=== PATIENT | male | born 1945 | race Caucasian/White ===

== ENCOUNTER 2017-04-26 09:21 | Emergency (ER) ==
[2017-04-26 09:30] VITALS: TEMP 97.4; BMI 28.7
[2017-04-26] MEDS ORDERED: SODIUM CHLORIDE 1,000 ML IV STA (09:49)
--- NOTE | 2017-04-26 09:49 | ED.PDOC ---
General ED Provider: Dr. ELISSA MURPHY Chief Complaint: Extremity Pain/Injury Stated Complaint: Patient complains of pain in right thigh for one week, unable to bear weight, denies injury, no swelling. Time Seen by Physician: 09:45 Mode of Arrival: Wheelchair Information Source: Patient Primary Care Provider: ELISSA IGLESIAS Nursing and Triage Documentation Reviewed and Agree: Yes Reviewed sepsis parameters & appropriate labs ordered?: Yes System Inflammatory Response Syndrome: Not Applicable Sepsis Protocol: For patient's 13 years and over: Temp is 96.8 and below OR 101 and greater Pulse >90 BPM Resp >20/minute Acutely Altered Mental Status Are patient's symptoms suggestive of a new infection, such as: -Pneumonia -Skin, Soft Tissue -Endocarditis -UTI -Bone, Joint Infection -Implantable Device -Acute Abdominal Infection -Wound Infection -Meningitis -Blood Stream Catheter Infection -Unknown System Inflammatory Response Syndrome: Not Applicable Musculoskeletal Complaint Exam - Lower Extremity Complaint/Exam Location of Pain: Reports: Thigh Mechanism of Injury: Reports: No known trauma Symptoms Are: Still present (intermittent) Onset of Pain: Reports: Immediate Initial Severity: Moderate Current Severity: Mild Location: Reports: Discrete (proximal) Character: Reports: Sharp, Aching Alleviating: Reports: Rest Aggravating: Reports: Weight bearing Able to Bear Weight: Yes Associated Signs and Symptoms: Denies: Swelling, Redness, Bruising, Fever, Weakness, Numbness, Tingling DVT Risk Factors: Reports: Malignancy Septic Arthritis Risk Factors: Reports: None Related Surgical History: Reports: None Lower Extremity Findings: Present: Tenderness. Absent: Swelling, Ecchymosis, Abnormal contour, Rotation, Ligamentous instability, Erythema, Warmth, Blisters , Other joint pain, Foreign body, Limited range of motion NV Bundle Intact Distal to Injury: Yes Compartment Syndrome Risk Factors: Present: Pain. Absent: Paralysis, Pallor, Pulselessness, Paresthesias Nestor's Sign Present: No Differential Diagnoses: Contusion, DVT, Strain Review of Systems - Review Of Systems Constitutional: Reports: No symptoms Eyes: Reports: No symptoms Ears, Nose, Mouth, Throat: Reports: Throat pain (hx tracheotomy) Respiratory: Reports: No symptoms Cardiac: Reports: No symptoms GI: Reports: No symptoms : Reports: No symptoms Musculoskeletal: Reports: Muscle pain Skin: Reports: No symptoms Neurological: Reports: No symptoms. Denies: Unable to move lower ext Endocrine: Reports: No symptoms Hematologic/Lymphatic: Reports: No symptoms All Other Systems: Reviewed and Negative Past Medical History - Past Medical History Endocrine: Reports: None Cardiovascular: Reports: Hypertension Respiratory: Reports: None Hematological: Reports: None Gastrointestinal: Reports: None Genitourinary: Reports: None Neuro/Psych: Reports: None Musculoskeletal: Reports: None Cancer: Reports: Lung, Other (Throat and Lung ) - Surgical History General Surgical History: Reports: Other (Throat/tracheotomy) - Family History Family History: Reports: None - Social History Smoking Status: Never smoker Hx Substance Use: No Alcohol Screening: Occasionally - Immunizations Tetanus Shot up to Date: No Physical Exam - Physical Exam Appearance: Ill-appearing Ill-appearing: Mild Pain Distress: None Eyes: JAMES, EOMI, Conjunctiva clear, Conjunctiva inflammed, Conjunctiva pale ENT: Ears normal, Oropharynx normal (Tracheotomy) Respiratory: Airway patent, Breath sounds clear, Breath sounds equal Cardiovascular: RRR, Pulses normal, No rub (Femoral pulses normal) GI/: Soft, Nontender, No masses, Bowel sounds normal, No Organomegaly Musculoskeletal: Normal strength (tenderness Rt mid thigh), ROM intact, No edema , No calf tenderness Skin: Warm Neurological: Sensation intact Critical Care Note - Critical Care Note Total Time (mins): 0 Course - Course Hematology/Chemistry: 04/26/17 10:00 04/26/17 13:50 Orders, Labs, Meds: Lab Review 04/26/17 04/26/17 04/26/17 10:00 10:00 10:00 WBC 3.57 L RBC 4.38 L Hgb 13.1 L Hct 36.9 L MCV 84.2 MCH 29.9 MCHC 35.5 H RDW Coeff of Jordan 16.4 H Plt Count 220 Immature Gran % (Auto) 1.1 Neut % (Auto) 83.5 Lymph % (Auto) 11.8 Lynn % (Auto) 3.6 Eos % (Auto) 0.0 Baso % (Auto) 0.0 Immature Gran # (Auto) 0.0 Neut # (Auto) 3.0 Lymph # (Auto) 0.4 L Lynn # (Auto) 0.1 L Eos # (Auto) 0.0 Baso # (Auto) 0.0 D-Dimer (Manual) Sodium 140 Potassium 2.7 L* Chloride 96 L Carbon Dioxide 29 Anion Gap 17.7 BUN 23 H Creatinine 1.36 H Estimated GFR (MDRD) 52.00 BUN/Creatinine Ratio 16.91 Glucose 138 H Calcium 7.6 L Magnesium 0.7 L* Total Bilirubin 1.0 AST 34 ALT 25 Alkaline Phosphatase 67 Total Protein 6.0 Albumin 2.8 L Globulin 3.2 Albumin/Globulin Ratio 0.88 04/26/17 04/26/17 04/26/17 10:00 13:50 16:40 WBC RBC Hgb Hct MCV MCH MCHC RDW Coeff of Jordan Plt Count Immature Gran % (Auto) Neut % (Auto) Lymph % (Auto) Lynn % (Auto) Eos % (Auto) Baso % (Auto) Immature Gran # (Auto) Neut # (Auto) Lymph # (Auto) Lynn # (Auto) Eos # (Auto) Baso # (Auto) D-Dimer (Manual) 1731.16 Sodium 138 Potassium 3.1 L Chloride 98 Carbon Dioxide 29 Anion Gap 14.1 BUN 22 H Creatinine 1.27 H Estimated GFR (MDRD) 56.00 BUN/Creatinine Ratio 17.32 Glucose 118 H Calcium 7.2 L Magnesium 0.7 L* 1.0 L Total Bilirubin AST ALT Alkaline Phosphatase Total Protein Albumin Globulin Albumin/Globulin Ratio Orders Category Date Time Status EKG-(ED ONLY) Stat CARDIO 04/26/17 10:56 Completed BASIC METABOLIC PANEL Stat LAB 04/26/17 13:50 Completed CBC W/ AUTO DIFF Stat LAB 04/26/17 10:00 Completed CMP [COMPREHENSIVE METABOLIC PANEL] Stat LAB 04/26/17 10:00 Completed D-DIMER Stat LAB 04/26/17 10:00 Completed MAGNESIUM Stat LAB 04/26/17 10:00 Completed MAGNESIUM Stat LAB 04/26/17 13:50 Completed MAGNESIUM Stat LAB 04/26/17 16:40 Completed Hydromorphone HCl [Dilaudid 1 mg/ml Syringe] MEDS 04/26/17 15:53 Discontinued 0.5 mg IVP ONCE STA Magnesium Oxide [Mag-Ox] MEDS 04/26/17 10:46 Discontinued 800 mg PO ONCE STA Magnesium Sulfate Bag [Magnesium Sulfate] 1 gm MEDS 04/26/17 14:24 Discontinued Premix 100 ml D5w 1 bag IV ONCE Magnesium Sulfate Bag [Magnesium Sulfate] 100 ml MEDS 04/26/17 14:38 Discontinued IV .STK-MED Potassium Chloride [Potassium Chloride Premix Run] 10 MEDS 04/26/17 10:42 Discontinued meq Premix 100 ml Water 1 bag IV ONCE Potassium Chloride [Potassium Chloride Premix Run] 100 MEDS 04/26/17 10:57 Discontinued ml IV .STK-MED Sodium Chloride 0.9% [Sodium Chloride] 1,000 ml MEDS 04/26/17 09:49 Discontinued IV BOLUS CHEST, 1V AP ONLY Stat RADS 04/26/17 10:57 Completed FEMUR, RIGHT 2 VIEWS Stat RADS 04/26/17 10:19 Completed ULTRASOUND VENOUS SCAN RT. LEG [U/S VENOUS SCAN RT. LEG RADS 04/26/17 10:16 Completed ] Stat Medications Discontinued Medications Generic Name Dose Route Start Last Admin Trade Name Freq PRN Reason Stop Dose Admin Hydromorphone HCl 0.5 mg 04/26/17 15:53 04/26/17 16:05 Dilaudid 1 Mg/Ml Syringe IVP 04/26/17 15:54 1 mg ONCE STA Administration Sodium Chloride 1,000 mls @ 500 mls/hr 04/26/17 09:49 04/26/17 10:22 Sodium Chloride IV 04/26/17 11:48 500 mls/hr BOLUS STA Administration Potassium Chloride 10 meq/ 100 mls @ 100 mls/hr 04/26/17 10:42 04/26/17 11:09 Sterile Water IV 04/26/17 11:41 100 mls/hr ONCE STA Administration Magnesium Sulfate/Dextrose 1 100 mls @ 100 mls/hr 04/26/17 14:24 04/26/17 14: 43 gm/ Dextrose IV 04/26/17 15:23 100 mls/hr ONCE STA Administration Magnesium Oxide 800 mg 04/26/17 10:46 04/26/17 11:09 Mag-Ox PO 04/26/17 10:47 800 mg ONCE STA Administration Vital Signs: Temp Pulse Resp BP Pulse Ox 04/26/17 17:21 124/59 L 04/26/17 09:24 97.4 F L 62 22 88/60 L 96 Departure - Departure Time of Disposition: 17:20 Disposition: HOME SELF-CARE Discharge Problem: Muscle strain of right thigh, Hypokalemia, Hypomagnesemia, Malignant neoplasm of throat, Lung metastasis Instructions: Potassium Chloride (By mouth), Hypomagnesemia (ED) Condition: Fair Pt referred to PMD for follow-up: Yes (Dr Iglesias 04-27-2017) IPMP verified?: No Additional Instructions: Take medication as prescribed Follow up with your primary care provider Take extra dose of Potassium daily and begin Mag therapy Take Tylenol 2 tabls for pain as needed Follow up PCP Dr Rey Tomorrow Prescriptions: Magnesium Chloride [Slow-Mag] 71.5 mg PO DAILY LAB #30 tablet. Allergies/Adverse Reactions: Allergies No Known Allergies Allergy (Unverified 04/26/17 10:03) Home Medications: Ambulatory Orders Calcium Carbonate 600 mg PO BID 04/26/17 Losartan/Hydrochlorothiazide [Losartan-Hctz 100-25 mg Tab] 1 tab PO DAILY Magnesium Chloride [Slow-Mag] 71.5 mg PO DAILY LAB #30 tablet. 04/26/17 Potassium Chloride [Klor-Con] 20 meq PO BID 04/26/17 Disposition Discussed With: Patient, Family
[2017-04-26] MEDS ORDERED: POTASSIUM CHLORIDE PREMIX RUN 10 MEQ in PREMIX 100 ML WATER 1 BAG IV STA (10:42)
--- NOTE | 2017-04-26 10:45 | DI ---
EXAM: Two views of the right femur HISTORY: Pain in the right thigh. COMPARISON: None FINDINGS: There is no cortical irregularity or displaced fracture of the right femur. There is no ly tic or blastic lesion. There is mild degenerative disease of the knee. There is narrowing and osteo phyte formation of the right hip. There are osteophytes of the greater trochanter. Limited views of the pelvis are normal. Soft tissues are unremarkable. IMPRESSION: 1. No acute abnormality or displaced fracture of the right femur. 2. There is degenerative disease of the hip and knee.
[2017-04-26] MEDS ORDERED: MAG-OX PO STA (10:46)
[2017-04-26] MEDS ORDERED: POTASSIUM CHLORIDE PREMIX RUN 100 ML IV ONE (10:57)
--- NOTE | 2017-04-26 11:09 | US ---
EXAM: Ultrasound venous Doppler right lower extermity HISTORY: Pain right thigh COMPARISON: None TECHNIQUE: Venous duplex ultrasound of the right lower extremity was performed using color, rolle-sca le, and Doppler flow imaging. FINDINGS: There is normal color flow and compression of the right common femoral, greater saphenous, profunda femoral, femoral, popliteal, peroneal, posterior tibial, and anterior tibial veins without evidence of intraluminal thrombus. No reflux is identified. IMPRESSION: No right lower extremity deep venous thrombosis.
--- NOTE | 2017-04-26 11:20 | DI ---
EXAM: Single frontal view of the chest HISTORY: Shortness of breath with history of lung cancer. COMPARISON: CT chest 04/24/2013 FINDINGS: Cardiomediastinal silhouette is enlarged. There is a left Port-A-Cath with the tip at the cavoatrial junction. The tracheostomy tube is noted overlying the airway at midline superiorly. The re is no pneumothorax. There is elevation of the right hemidiaphragm and minimal blunting of the rig ht costophrenic angle. There is minimal ground-glass consolidation in the medial right lung. The left lung is clear. The osseous structures are unremarkable. IMPRESSION: 1. Elevation of the right hemidiaphragm and ground-glass consolidation in the medial right lung that may represent atelectasis versus pneumonia. 2. Support equipment as described above with cardiomediastinal silhouette enlarged.
[2017-04-26] MEDS ORDERED: D5W IV STA (14:24)
[2017-04-26] MEDS ORDERED: MAGNESIUM SULFATE IV STA (14:24)
[2017-04-26] MEDS ORDERED: MAGNESIUM SULFATE 100 ML IV ONE (14:38)
[2017-04-26] MEDS ORDERED: DILAUDID 1 MG/ML SYRINGE IVP STA (15:53)
[2017-04-26 17:21] VITALS: BP 124/59
== END 2017-04-26 17:43 | disposition home or self-care (01) ==
LOC: ED 09:21
DX: S76.911A Strain of unspecified muscles, fascia and tendons at thigh level, right thigh, initial encounter (principal); M79.651 Pain in right thigh; C14.0 Malignant neoplasm of pharynx, unspecified; C78.00 Secondary malignant neoplasm of unspecified lung; E87.6 Hypokalemia; E83.42 Hypomagnesemia; X50.1XXA Overexertion from prolonged static or awkward postures, initial encounter
CPT/HCPCS: 36415; 36591; 80048; 80053; 83735; 85025; 85379; 93005; 93010; 96361; 96365; 96366; 96375; 99284

== ENCOUNTER 2021-01-25 06:03 | Inpatient (IN) ==
--- NOTE | 2021-01-25 06:09 | ED.PDOC ---
General <GABRIEL LANCE MD - Last Filed: 01/27/21 06:48> ED Provider: Dr. GABRIEL LANCE Chief Complaint: Shortness of Air Stated Complaint: This morning developed SOA, no fever, some cough, no chest pain. Hx trach due to throat cancer. Time Seen by Provider: 01/25/21 06:09 Mode of Arrival: Walk-In Information Source: Patient Exam Limitations: No limitations Primary Care Provider: ELISSA MALONEY Nursing and Triage Documentation Reviewed and Agree: Yes Does patient meet sepsis criteria?: No System Inflammatory Response Syndrome: Pulse >90 BPM and Not Applicable Sepsis Protocol: For patient's 13 years and over: Temp is 96.8 and below OR 101 and greater Pulse >90 BPM Resp >20/minute Acutely Altered Mental Status Are patient's symptoms suggestive of a new infection, such as: -Pneumonia -Skin, Soft Tissue -Endocarditis -UTI -Bone, Joint Infection -Implantable Device -Acute Abdominal Infection -Wound Infection -Meningitis -Blood Stream Catheter Infection -Unknown Respiratory Complaint Exam <GABRIEL LANCE MD - Last Filed: 01/27/21 06:48> Shortness of Air Complaint/Exam Onset/Duration: Just ADULT CARE PROVIDER Symptoms Are: Still present Timing: Constant Initial Severity: Moderate Current Severity: Moderate Character: Reports Dyspnea at rest and Dyspnea on exertion Aggravating: Reports Movement Alleviating: Reports None Associated Signs and Symptoms: Reports Cough, Wheezing and Labored breathing History of Healthcare-Acquired Pneumonia: No Pulmonary Embolism Risk Factors: Reports Malignancy Cardiac Risk Factors: Reports Hypertension Pseudomonas Risk Factors: Reports None Tuberculosis Risk Factors: Reports None Home Oxygen Use: No Recent Stress Test: No Recent Echo/LV Function: No Respiratory Distress: Moderate Stridor Present: No Tracheal Deviation: No Subcutaneous Emphysema: No Accessory Muscle Use: Yes Retractions: Not Present Diminished Breath Sounds: Yes Prolonged Expiratory Phase: Yes Unable to Speak Full Sentences: No Fatigue: No Leg Swelling: No Nestor's Sign Present: No Grunting Respirations: No Kussmaul Respirations: No Differential Diagnoses: Pulmonary Edema, COPD Exacerbation, Pulmonary Embolism and Bronchitis Review of Systems <GABRIEL LANCE MD - Last Filed: 01/27/21 06:48> Review Of Systems Constitutional: Reports No symptoms Eyes: Reports No symptoms Ears, Nose, Mouth, Throat: Reports No symptoms Respiratory: Reports Cough Cardiac: Reports No symptoms GI: Reports No symptoms : Reports No symptoms Musculoskeletal: Reports No symptoms Skin: Reports No symptoms Neurological: Reports No symptoms Hematologic/Lymphatic: Reports No symptoms All Other Systems: Reviewed and Negative PFSH <GABRIEL LANCE MD - Last Filed: 01/27/21 06:48> Medical History (Updated 01/27/21 @ 06:34 by GABRIEL LANCE MD) History of throat cancer Hypertension Hypothyroid Lung cancer Tracheostomy present Family History (Updated 01/25/21 @ 10:43 by SKYLA GALLOWAY, RN) Other No known health problems Social History (Updated 01/25/21 @ 10:43 by SKYLA GALLOWAY, RN) Smoking and tobacco status: Never smoker Alcohol intake: current Alcohol intake frequency: holidays/special occasions only Physical Exam <GABRIEL LANCE MD - Last Filed: 01/27/21 06:48> Physical Exam Appearance: Reports Ill-appearing Ill-appearing: Moderate Pain Distress: Moderate Eyes: Reports JAMES ENT: Reports Oropharynx normal Neck: Supple (trach) Respiratory: Reports Airway patent Cardiovascular: Reports RRR GI/: Reports Soft Musculoskeletal: Reports Normal strength Skin: Reports Warm Neurological: Reports Sensation intact Psychiatric: Reports Affect appropriate Interpretation <GABRIEL LANCE MD - Last Filed: 01/27/21 06:48> EKG Interpretation Time of EKG #1: 06:17 Rate: Tachy Rhythm: Other Ectopy: PVCs [place]: NL ST Segment: Normal Interpretation: Wide QRS tachycardia with occ. PVC, LBBB, will repeat for Dr. Ryan zhao. Critical Care Note <GABRIEL LANCE MD - Last Filed: 01/27/21 06:48> Critical Care Note Total Critical Care Time (mins): 0 Course <GABRIEL LANCE MD - Last Filed: 01/27/21 06:48> Course Hematology/Chemistry: 01/27/21 04:51 01/27/21 04:51 Orders, Labs, Meds: Lab Review 01/25/21 01/25/21 01/25/21 06:28 06:28 06:28 WBC 6.76 RBC 4.24 L Hgb 13.6 L Hct 41.8 L MCV 98.6 H MCH 32.1 H MCHC 32.5 RDW Coeff of [place] 13.3 Plt Count 218 Immature Gran % (Auto) 0.7 Neut % (Auto) 63.5 Lymph % (Auto) 21.6 [place] % (Auto) 11.4 H Eos % (Auto) 2.2 Baso % (Auto) 0.6 Neut # (Auto) 4.3 Lymph # (Auto) 1.5 [place] # (Auto) 0.8 Eos # (Auto) 0.2 Baso # (Auto) 0.0 Immature Gran # (Auto) 0.1 Puncture Site Base Excess O2 Saturation ABG pH ABG pCO2 ABG pO2 ABG HCO3 ABG Total CO2 David Test Hemoglobin Oxyhemoglobin Carboxyhemoglobin Total Hemoglobin FiO2 % Sodium 138.1 Potassium 4.04 Chloride 107.7 H Carbon Dioxide 18.3 L Anion Gap 16.14 BUN 14.9 Creatinine 1.25 H Estimated GFR (MDRD) 56.00 BUN/Creatinine Ratio 11.92 Glucose 245.8 H Lactic Acid Calcium 8.53 Magnesium 1.80 Total Bilirubin 0.36 AST 32.8 ALT 17.3 Alkaline Phosphatase 93.1 Troponin I 0.028 NT-Pro-B Natriuret Pep 6750.000 H Total Protein 7.27 Albumin 4.11 Globulin 3.16 Albumin/Globulin Ratio 1.30 Procalcitonin D-Dimer 2631.03 H Adenovirus (PCR) B. pertussis DNA (PCR) B.parapertussis DNA PCR C. pneumoniae DNA (PCR) Coronavirus OC43 (PCR) Coronavirus HKU1 (PCR) Coronavirus 229E (PCR) Coronavirus NL63 (PCR) Human Metapneumovir PCR Influenza Type A (PCR) Influenza B (RT-PCR) M. pneumoniae (PCR) Parainfluenza 1 (PCR) Parainfluenza 2 (PCR) Parainfluenza 3 (PCR) Parainfluenza 4 (PCR) RSV (PCR) Entero/Rhino (PCR) SARS-CoV-2 (PCR) 01/25/21 01/25/21 01/25/21 07:35 07:54 07:54 WBC RBC Hgb Hct MCV MCH MCHC RDW Coeff of [place] Plt Count Immature Gran % (Auto) Neut % (Auto) Lymph % (Auto) [place] % (Auto) Eos % (Auto) Baso % (Auto) Neut # (Auto) Lymph # (Auto) [place] # (Auto) Eos # (Auto) Baso # (Auto) Immature Gran # (Auto) Puncture Site Base Excess O2 Saturation ABG pH ABG pCO2 ABG pO2 ABG HCO3 ABG Total CO2 David Test Hemoglobin Oxyhemoglobin Carboxyhemoglobin Total Hemoglobin FiO2 % Sodium Potassium Chloride Carbon Dioxide Anion Gap BUN Creatinine Estimated GFR (MDRD) BUN/Creatinine Ratio Glucose Lactic Acid 2.18 H Calcium Magnesium Total Bilirubin AST ALT Alkaline Phosphatase Troponin I NT-Pro-B Natriuret Pep Total Protein Albumin Globulin Albumin/Globulin Ratio Procalcitonin < 0.05 D-Dimer Adenovirus (PCR) Not detected B. pertussis DNA (PCR) Not detected B.parapertussis DNA PCR Not detected C. pneumoniae DNA (PCR) Not detected Coronavirus OC43 (PCR) Not detected Coronavirus HKU1 (PCR) Not detected Coronavirus 229E (PCR) Not detected Coronavirus NL63 (PCR) Not detected Human Metapneumovir PCR Not detected Influenza Type A (PCR) Not detected Influenza B (RT-PCR) Not detected M. pneumoniae (PCR) Not detected Parainfluenza 1 (PCR) Not detected Parainfluenza 2 (PCR) Not detected Parainfluenza 3 (PCR) Not detected Parainfluenza 4 (PCR) Not detected RSV (PCR) Not detected Entero/Rhino (PCR) Not detected SARS-CoV-2 (PCR) Not detected 01/25/21 07:59 WBC RBC Hgb Hct MCV MCH MCHC RDW Coeff of [place] Plt Count Immature Gran % (Auto) Neut % (Auto) Lymph % (Auto) [place] % (Auto) Eos % (Auto) Baso % (Auto) Neut # (Auto) Lymph # (Auto) [place] # (Auto) Eos # (Auto) Baso # (Auto) Immature Gran # (Auto) Puncture Site Rrad Base Excess -1.1 O2 Saturation 89.0 L ABG pH 7.41 ABG pCO2 37.0 ABG pO2 56.0 L* ABG HCO3 23.5 ABG Total CO2 24.6 H David Test Pos Hemoglobin 0.8 Oxyhemoglobin 88.5 L Carboxyhemoglobin 1.1 Total Hemoglobin 13.9 FiO2 % 21.0 Sodium Potassium Chloride Carbon Dioxide Anion Gap BUN Creatinine Estimated GFR (MDRD) BUN/Creatinine Ratio Glucose Lactic Acid Calcium Magnesium Total Bilirubin AST ALT Alkaline Phosphatase Troponin I NT-Pro-B Natriuret Pep Total Protein Albumin Globulin Albumin/Globulin Ratio Procalcitonin D-Dimer Adenovirus (PCR) B. pertussis DNA (PCR) B.parapertussis DNA PCR C. pneumoniae DNA (PCR) Coronavirus OC43 (PCR) Coronavirus HKU1 (PCR) Coronavirus 229E (PCR) Coronavirus NL63 (PCR) Human Metapneumovir PCR Influenza Type A (PCR) Influenza B (RT-PCR) M. pneumoniae (PCR) Parainfluenza 1 (PCR) Parainfluenza 2 (PCR) Parainfluenza 3 (PCR) Parainfluenza 4 (PCR) RSV (PCR) Entero/Rhino (PCR) SARS-CoV-2 (PCR) Orders Category Date Time Status ADMIT PATIENT INPATIENT .TO [facility] (MONITORED BED) ADMISSION 01/25/21 09:08 Active ABG DRAW REQUEST Stat CARDIO 01/25/21 06:49 Completed EKG-(ED ONLY) Stat CARDIO 01/25/21 06:15 Completed EKG-(ED ONLY) Stat CARDIO 01/25/21 07:00 Completed METERED DOSE INHALATION Routine CARDIO 01/25/21 06:18 Completed OXYGEN Routine CARDIO 01/25/21 09:09 Active ACTIVITY .Up With Assistance CARE 01/25/21 09:09 Active CASE MANAGEMENT CONSULT ONCE CARE 01/25/21 09:09 Completed INTAKE & OUTPUT Q8HR CARE 01/25/21 09:09 Active TELEMETRY MONITORING TELE CARE 01/25/21 09:08 Active VITAL SIGNS Q4HR CARE 01/25/21 09:09 Active REGULAR DIET DIETARY 01/25/21 Lunch Ordered Recheck vital signs [ED VITAL SIGNS] .ONCE EMERGENCY 01/25/21 07:50 Active ABG COOX Stat LAB 01/25/21 07:59 Completed BLOOD CULTURE (ED ONLY) Stat LAB 01/25/21 07:54 Results CBC W/ AUTO DIFF DAILY@0600 LAB 01/26/21 04:30 Completed CBC W/ AUTO DIFF DAILY@0600 LAB 01/27/21 04:51 Completed CBC W/ AUTO DIFF Stat LAB 01/25/21 06:28 Completed COMPREHENSIVE METABOLIC PANEL DAILY@0600 LAB 01/26/21 04:30 Completed COMPREHENSIVE METABOLIC PANEL DAILY@0600 LAB 01/27/21 04:51 Completed COMPREHENSIVE METABOLIC PANEL Stat LAB 01/25/21 06:28 Completed D-DIMER Stat LAB 01/25/21 06:28 Completed LACTIC ACID Stat LAB 01/25/21 07:54 Completed MAGNESIUM Stat LAB 01/25/21 06:28 Completed NT-PROBNP Stat LAB 01/25/21 06:28 Completed PROCALCITONIN Stat LAB 01/25/21 07:54 Completed RESPIRATORY PANEL 2.1 (PCR) Stat LAB 01/25/21 07:35 Completed SPUTUM CULTURE Stat LAB 01/25/21 07:35 Results TROPONIN I Stat LAB 01/25/21 06:28 Completed Acetaminophen [Tylenol] MEDS 01/25/21 09:09 Active 650 mg PO Q4H PRN Albuterol Inhaler(with Spacer) [Ventolin Hfa (Per Puff- MEDS 01/25/21 06:15 Discontinued with Spacer)] 4 puff IH ONCE ONE Azithromycin Inj [Zithromax] 500 mg MEDS 01/25/21 08:23 Discontinued 0.9 % Sodium Chloride [Sodium Chloride] 250 ml IV ONCE Ceftriaxone/D5w 1 gm Premix [Rocephin 1 gm/50 ml D5w] MEDS 01/25/21 09:00 Active 1 gm in 50 ml IV DAILY Dexamethasone Sod Phosphate [Decadron] MEDS 01/25/21 08:25 Discontinued 6 mg IVP ONCE STA Enoxaparin Sodium [Lovenox] MEDS 01/26/21 09:00 Active 40 mg SUBCUT DAILY Enoxaparin Sodium [Lovenox] MEDS 01/25/21 09:01 Discontinued 40 mg SUBCUT ONCE ONE Ondansetron HCl/Pf [Zofran 4 mg/2 ml] MEDS 01/25/21 09:09 Active 4 mg IVP Q6H PRN Sodium Chloride 0.9% [Sodium Chloride] 1,000 ml MEDS 01/25/21 09:30 Active IV 30 mls/hr Sodium Chloride 0.9% [Sodium Chloride] 500 ml MEDS 01/25/21 08:29 Discontinued IV 30 mls/hr RESUSCITATION STATUS Routine OTHERS 01/25/21 09:09 Ordered CHEST, 1V AP ONLY Stat RADS 01/25/21 06:15 Completed PT CONSULT Routine THERAPIES 01/25/21 16:22 Completed Medications Generic Name Dose Route Start Last Admin Trade Name Freq PRN Reason Stop Dose Admin Acetaminophen 650 mg 01/25/21 09:09 Acetaminophen 325 Mg Tablet PO Q4H PRN Analgesia Azithromycin 500 mg 01/26/21 09:00 01/26/21 08:58 Azithromycin 250 Mg Tablet PO 01/27/21 10:00 500 mg DAILY KWESI Administration Enoxaparin Sodium 40 mg 01/26/21 09:00 01/26/21 08:58 Enoxaparin Sodium 40 Mg/0.4 Ml Syr SUBCUT 40 mg DAILY KWESI Administration Hydrochlorothiazide 25 mg 01/25/21 21:00 01/25/21 20:16 Hydrochlorothiazide 25 Mg Tablet PO 25 mg BEDTIME KWESI Administration CEFTRIAXONE/D5W 1 GM PREMIX 1 gm in 50 mls @ 75 mls/hr 01/25/21 09:00 01/26/21 08:58 Rocephin 1 Gm/50 Ml D5w IV 01/28/21 08:59 75 mls/hr DAILY KWESI Administration Sodium Chloride 1,000 mls @ 30 mls/hr 01/25/21 09:30 01/26/21 20:28 Sodium Chloride IV 30 mls/hr .[id number] KWESI Administration Levothyroxine Sodium 25 mcg 01/27/21 06:00 01/27/21 05:33 Levothyroxine Sodium 25 Mcg Tablet PO 25 mcg 0600 KWESI Administration Losartan Potassium 50 mg 01/25/21 21:00 01/25/21 20:16 Losartan Potassium 25 Mg Tablet PO 50 mg BEDTIME KWESI Administration Ondansetron HCl 4 mg 01/25/21 09:09 Ondansetron Hcl/Pf 4 Mg/2 Ml Sdv IVP Q6H PRN Nausea / Vomiting Sodium Chloride 1 syr 01/26/21 21:00 01/27/21 05:34 0.9% Sodium Chloride 10 Ml Disp.Syrin IVF Not Given Q8HR KWESI Discontinued Medications Generic Name Dose Route Start Last Admin Trade Name Freq PRN Reason Stop Dose Admin Albuterol Sulfate 4 puff 01/25/21 06:15 01/25/21 06:05 Albuterol Sulfate (Ventolin Hfa) 18 Gm 1 Puff With Spacer IH 01/25/21 06:16 4 puff ONCE ONE Administration Clonidine 0.1 mg 01/25/21 18:14 01/25/21 18:25 Clonidine Hcl 0.1 Mg Tablet PO 01/25/21 18:15 0.1 mg ONCE ONE Administration Dexamethasone Sodium Phosphate 6 mg 01/25/21 08:25 01/25/21 08:30 Dexamethasone Sod Phos 10 Mg/Ml Inj IVP 01/25/21 08:26 6 mg ONCE STA Administration Enoxaparin Sodium 40 mg 01/25/21 09:01 01/25/21 09:14 Enoxaparin Sodium 40 Mg/0.4 Ml Syr SUBCUT 01/25/21 09:02 40 mg ONCE ONE Administration Azithromycin 500 mg/ Sodium 250 mls @ 125 mls/hr 01/25/21 08:23 01/25/21 08:50 Chloride IV 01/25/21 10:22 125 mls/hr ONCE ONE Administration Sodium Chloride 500 mls @ 30 mls/hr 01/25/21 08:29 01/25/21 08:50 Sodium Chloride IV 01/26/21 01:08 30 mls/hr .[id number] STA Administration Vital Signs: Temp Pulse Resp BP Pulse Ox 01/25/21 08:54 103 H 23 132/93 H 98 01/25/21 07:54 112 H 28 H 140/91 H 92 L 01/25/21 07:36 110 H 23 140/96 H 99 01/25/21 06:08 97 F L 132 H 24 175/119 H 93 L <ELISSA MURPHY, DO - Last Filed: 01/25/21 09:06> Course Orders, Labs, Meds: Lab Review 01/25/21 01/25/21 01/25/21 06:28 06:28 06:28 WBC 6.76 RBC 4.24 L Hgb 13.6 L Hct 41.8 L MCV 98.6 H MCH 32.1 H MCHC 32.5 RDW Coeff of [place] 13.3 Plt Count 218 Immature Gran % (Auto) 0.7 Neut % (Auto) 63.5 Lymph % (Auto) 21.6 [place] % (Auto) 11.4 H Eos % (Auto) 2.2 Baso % (Auto) 0.6 Neut # (Auto) 4.3 Lymph # (Auto) 1.5 [place] # (Auto) 0.8 Eos # (Auto) 0.2 Baso # (Auto) 0.0 Immature Gran # (Auto) 0.1 Puncture Site Base Excess O2 Saturation ABG pH ABG pCO2 ABG pO2 ABG HCO3 ABG Total CO2 David Test Hemoglobin Oxyhemoglobin Carboxyhemoglobin Total Hemoglobin FiO2 % Sodium 138.1 Potassium 4.04 Chloride 107.7 H Carbon Dioxide 18.3 L Anion Gap 16.14 BUN 14.9 Creatinine 1.25 H Estimated GFR (MDRD) 56.00 BUN/Creatinine Ratio 11.92 Glucose 245.8 H Lactic Acid Calcium 8.53 Magnesium 1.80 Total Bilirubin 0.36 AST 32.8 ALT 17.3 Alkaline Phosphatase 93.1 Troponin I 0.028 NT-Pro-B Natriuret Pep 6750.000 H Total Protein 7.27 Albumin 4.11 Globulin 3.16 Albumin/Globulin Ratio 1.30 Procalcitonin D-Dimer 2631.03 H Adenovirus (PCR) B. pertussis DNA (PCR) B.parapertussis DNA PCR C. pneumoniae DNA (PCR) Coronavirus OC43 (PCR) Coronavirus HKU1 (PCR) Coronavirus 229E (PCR) Coronavirus NL63 (PCR) Human Metapneumovir PCR Influenza Type A (PCR) Influenza B (RT-PCR) M. pneumoniae (PCR) Parainfluenza 1 (PCR) Parainfluenza 2 (PCR) Parainfluenza 3 (PCR) Parainfluenza 4 (PCR) RSV (PCR) Entero/Rhino (PCR) SARS-CoV-2 (PCR) 01/25/21 01/25/21 01/25/21 07:35 07:54 07:54 WBC RBC Hgb Hct MCV MCH MCHC RDW Coeff of [place] Plt Count Immature Gran % (Auto) Neut % (Auto) Lymph % (Auto) [place] % (Auto) Eos % (Auto) Baso % (Auto) Neut # (Auto) Lymph # (Auto) [place] # (Auto) Eos # (Auto) Baso # (Auto) Immature Gran # (Auto) Puncture Site Base Excess O2 Saturation ABG pH ABG pCO2 ABG pO2 ABG HCO3 ABG Total CO2 David Test Hemoglobin Oxyhemoglobin Carboxyhemoglobin Total Hemoglobin FiO2 % Sodium Potassium Chloride Carbon Dioxide Anion Gap BUN Creatinine Estimated GFR (MDRD) BUN/Creatinine Ratio Glucose Lactic Acid 2.18 H Calcium Magnesium Total Bilirubin AST ALT Alkaline Phosphatase Troponin I NT-Pro-B Natriuret Pep Total Protein Albumin Globulin Albumin/Globulin Ratio Procalcitonin < 0.05 D-Dimer Adenovirus (PCR) Not detected B. pertussis DNA (PCR) Not detected B.parapertussis DNA PCR Not detected C. pneumoniae DNA (PCR) Not detected Coronavirus OC43 (PCR) Not detected Coronavirus HKU1 (PCR) Not detected Coronavirus 229E (PCR) Not detected Coronavirus NL63 (PCR) Not detected Human Metapneumovir PCR Not detected Influenza Type A (PCR) Not detected Influenza B (RT-PCR) Not detected M. pneumoniae (PCR) Not detected Parainfluenza 1 (PCR) Not detected Parainfluenza 2 (PCR) Not detected Parainfluenza 3 (PCR) Not detected Parainfluenza 4 (PCR) Not detected RSV (PCR) Not detected Entero/Rhino (PCR) Not detected SARS-CoV-2 (PCR) Not detected 01/25/21 07:59 WBC RBC Hgb Hct MCV MCH MCHC RDW Coeff of [place] Plt Count Immature Gran % (Auto) Neut % (Auto) Lymph % (Auto) [place] % (Auto) Eos % (Auto) Baso % (Auto) Neut # (Auto) Lymph # (Auto) [place] # (Auto) Eos # (Auto) Baso # (Auto) Immature Gran # (Auto) Puncture Site Rrad Base Excess -1.1 O2 Saturation 89.0 L ABG pH 7.41 ABG pCO2 37.0 ABG pO2 56.0 L* ABG HCO3 23.5 ABG Total CO2 24.6 H David Test Pos Hemoglobin 0.8 Oxyhemoglobin 88.5 L Carboxyhemoglobin 1.1 Total Hemoglobin 13.9 FiO2 % 21.0 Sodium Potassium Chloride Carbon Dioxide Anion Gap BUN Creatinine Estimated GFR (MDRD) BUN/Creatinine Ratio Glucose Lactic Acid Calcium Magnesium Total Bilirubin AST ALT Alkaline Phosphatase Troponin I NT-Pro-B Natriuret Pep Total Protein Albumin Globulin Albumin/Globulin Ratio Procalcitonin D-Dimer Adenovirus (PCR) B. pertussis DNA (PCR) B.parapertussis DNA PCR C. pneumoniae DNA (PCR) Coronavirus OC43 (PCR) Coronavirus HKU1 (PCR) Coronavirus 229E (PCR) Coronavirus NL63 (PCR) Human Metapneumovir PCR Influenza Type A (PCR) Influenza B (RT-PCR) M. pneumoniae (PCR) Parainfluenza 1 (PCR) Parainfluenza 2 (PCR) Parainfluenza 3 (PCR) Parainfluenza 4 (PCR) RSV (PCR) Entero/Rhino (PCR) SARS-CoV-2 (PCR) Orders Category Date Time Status ADMIT PATIENT INPATIENT .TO [facility] (MONITORED BED) ADMISSION 01/25/21 09:08 Active ABG DRAW REQUEST Stat CARDIO 01/25/21 06:49 Completed EKG-(ED ONLY) Stat CARDIO 01/25/21 06:15 Completed EKG-(ED ONLY) Stat CARDIO 01/25/21 07:00 Completed METERED DOSE INHALATION Routine CARDIO 01/25/21 06:18 Completed OXYGEN Routine CARDIO 01/25/21 09:09 Active ACTIVITY .Up With Assistance CARE 01/25/21 09:09 Active CASE MANAGEMENT CONSULT ONCE CARE 01/25/21 09:09 Completed INTAKE & OUTPUT Q8HR CARE 01/25/21 09:09 Active TELEMETRY MONITORING TELE CARE 01/25/21 09:08 Active VITAL SIGNS Q4HR CARE 01/25/21 09:09 Active REGULAR DIET DIETARY 01/25/21 Lunch Ordered Recheck vital signs [ED VITAL SIGNS] .ONCE EMERGENCY 01/25/21 07:50 Active ABG COOX Stat LAB 01/25/21 07:59 Completed BLOOD CULTURE (ED ONLY) Stat LAB 01/25/21 07:54 Results CBC W/ AUTO DIFF DAILY@0600 LAB 01/26/21 04:30 Completed CBC W/ AUTO DIFF DAILY@0600 LAB 01/27/21 04:51 Completed CBC W/ AUTO DIFF Stat LAB 01/25/21 06:28 Completed COMPREHENSIVE METABOLIC PANEL DAILY@0600 LAB 01/26/21 04:30 Completed COMPREHENSIVE METABOLIC PANEL DAILY@0600 LAB 01/27/21 04:51 Completed COMPREHENSIVE METABOLIC PANEL Stat LAB 01/25/21 06:28 Completed D-DIMER Stat LAB 01/25/21 06:28 Completed LACTIC ACID Stat LAB 01/25/21 07:54 Completed MAGNESIUM Stat LAB 01/25/21 06:28 Completed NT-PROBNP Stat LAB 01/25/21 06:28 Completed PROCALCITONIN Stat LAB 01/25/21 07:54 Completed RESPIRATORY PANEL 2.1 (PCR) Stat LAB 01/25/21 07:35 Completed SPUTUM CULTURE Stat LAB 01/25/21 07:35 Results TROPONIN I Stat LAB 01/25/21 06:28 Completed Acetaminophen [Tylenol] MEDS 01/25/21 09:09 Active 650 mg PO Q4H PRN Albuterol Inhaler(with Spacer) [Ventolin Hfa (Per Puff- MEDS 01/25/21 06:15 Discontinued with Spacer)] 4 puff IH ONCE ONE Azithromycin Inj [Zithromax] 500 mg MEDS 01/25/21 08:23 Discontinued 0.9 % Sodium Chloride [Sodium Chloride] 250 ml IV ONCE Ceftriaxone/D5w 1 gm Premix [Rocephin 1 gm/50 ml D5w] MEDS 01/25/21 09:00 Active 1 gm in 50 ml IV DAILY Dexamethasone Sod Phosphate [Decadron] MEDS 01/25/21 08:25 Discontinued 6 mg IVP ONCE STA Enoxaparin Sodium [Lovenox] MEDS 01/26/21 09:00 Active 40 mg SUBCUT DAILY Enoxaparin Sodium [Lovenox] MEDS 01/25/21 09:01 Discontinued 40 mg SUBCUT ONCE ONE Ondansetron HCl/Pf [Zofran 4 mg/2 ml] MEDS 01/25/21 09:09 Active 4 mg IVP Q6H PRN Sodium Chloride 0.9% [Sodium Chloride] 1,000 ml MEDS 01/25/21 09:30 Active IV 30 mls/hr Sodium Chloride 0.9% [Sodium Chloride] 500 ml MEDS 01/25/21 08:29 Discontinued IV 30 mls/hr RESUSCITATION STATUS Routine OTHERS 01/25/21 09:09 Ordered CHEST, 1V AP ONLY Stat RADS 01/25/21 06:15 Completed PT CONSULT Routine THERAPIES 01/25/21 16:22 Completed Medications Generic Name Dose Route Start Last Admin Trade Name Taniq PRN Reason Stop Dose Admin Acetaminophen 650 mg 01/25/21 09:09 Acetaminophen 325 Mg Tablet PO Q4H PRN Analgesia Azithromycin 500 mg 01/26/21 09:00 01/26/21 08:58 Azithromycin 250 Mg Tablet PO 01/27/21 10:00 500 mg DAILY KWESI Administration Enoxaparin Sodium 40 mg 01/26/21 09:00 01/26/21 08:58 Enoxaparin Sodium 40 Mg/0.4 Ml Syr SUBCUT 40 mg DAILY KWESI Administration Hydrochlorothiazide 25 mg 01/25/21 21:00 01/25/21 20:16 Hydrochlorothiazide 25 Mg Tablet PO 25 mg BEDTIME KWESI Administration CEFTRIAXONE/D5W 1 GM PREMIX 1 gm in 50 mls @ 75 mls/hr 01/25/21 09:00 01/26/21 08:58 Rocephin 1 Gm/50 Ml D5w IV 01/28/21 08:59 75 mls/hr DAILY KWESI Administration Sodium Chloride 1,000 mls @ 30 mls/hr 01/25/21 09:30 01/26/21 20:28 Sodium Chloride IV 30 mls/hr .[id number] KWESI Administration Levothyroxine Sodium 25 mcg 01/27/21 06:00 01/27/21 05:33 Levothyroxine Sodium 25 Mcg Tablet PO 25 mcg 0600 KWESI Administration Losartan Potassium 50 mg 01/25/21 21:00 01/25/21 20:16 Losartan Potassium 25 Mg Tablet PO 50 mg BEDTIME KWESI Administration Ondansetron HCl 4 mg 01/25/21 09:09 Ondansetron Hcl/Pf 4 Mg/2 Ml Sdv IVP Q6H PRN Nausea / Vomiting Sodium Chloride 1 syr 01/26/21 21:00 01/27/21 05:34 0.9% Sodium Chloride 10 Ml Disp.Syrin IVF Not Given Q8HR KWESI Discontinued Medications Generic Name Dose Route Start Last Admin Trade Name Freq PRN Reason Stop Dose Admin Albuterol Sulfate 4 puff 01/25/21 06:15 01/25/21 06:05 Albuterol Sulfate (Ventolin Hfa) 18 Gm 1 Puff With Spacer IH 01/25/21 06:16 4 puff ONCE ONE Administration Clonidine 0.1 mg 01/25/21 18:14 01/25/21 18:25 Clonidine Hcl 0.1 Mg Tablet PO 01/25/21 18:15 0.1 mg ONCE ONE Administration Dexamethasone Sodium Phosphate 6 mg 01/25/21 08:25 01/25/21 08:30 Dexamethasone Sod Phos 10 Mg/Ml Inj IVP 01/25/21 08:26 6 mg ONCE STA Administration Enoxaparin Sodium 40 mg 01/25/21 09:01 01/25/21 09:14 Enoxaparin Sodium 40 Mg/0.4 Ml Syr SUBCUT 01/25/21 09:02 40 mg ONCE ONE Administration Azithromycin 500 mg/ Sodium 250 mls @ 125 mls/hr 01/25/21 08:23 01/25/21 08:50 Chloride IV 01/25/21 10:22 125 mls/hr ONCE ONE Administration Sodium Chloride 500 mls @ 30 mls/hr 01/25/21 08:29 01/25/21 08:50 Sodium Chloride IV 01/26/21 01:08 30 mls/hr .[id number] STA Administration Vital Signs: Temp Pulse Resp BP Pulse Ox 01/25/21 08:54 103 H 23 132/93 H 98 01/25/21 07:54 112 H 28 H 140/91 H 92 L 01/25/21 07:36 110 H 23 140/96 H 99 01/25/21 06:08 97 F L 132 H 24 175/119 H 93 L Discharge Plan Discharge Patient Disposition: ADMITTED INPATIENT Discharge Problem: Pneumonia, Cardiac arrhythmia ED Provider: ELISSA MURPHY Condition: Stable <GABRIEL LANCE MD - Last Filed: 01/27/21 06:48> Physician Progress Note: Turn over to Dr. Murphy.[] <ELISSA MURPHY DO - Last Filed: 01/25/21 09:06> Physician Progress Note: Turn over to Dr. Murphy.[] 0820 Hrs: Patient with easy and non labored Breathing at present. O2 Sat 95% Cardiac -current Sinus tachycardia
[2021-01-25] MEDS ORDERED: VENTOLIN HFA (PER PUFF-WITH SPACER) IH ONE (06:15)
[2021-01-25 06:36] LABS: BASOPHILS % (AUTO) 0.6 % (0.0-3.0); EOSINOPHILS # (AUTO) 0.2 K/ul (0.0-0.7); EOSINOPHILS % (AUTO) 2.2 % (0.0-7.0); HEMATOCRIT 41.8 % (42.0-52.0); HEMOGLOBIN 13.6 g/dl (14.0-18.0); IMMATURE GRANULOCYTE # (AUTO) 0.1 (0.0-1.0); IMMATURE GRANULOCYTE % (AUTO) 0.7 % (0.0-5.0); LYMPHOCYTES # (AUTO) 1.5 K/uL (0.60-3.4); LYMPHOCYTES % (AUTO) 21.6 (10.0-50.0); MEAN CORPUSCULAR HEMOGLOBIN 32.1 pg (27.0-31.0); MEAN CORPUSCULAR HGB CONC 32.5 (31.8-35.4); MEAN CORPUSCULAR VOLUME 98.6 fl (80.0-94.0); MONOCYTES # (AUTO) 0.8 K/uL (0.4-2.0); MONOCYTES % (AUTO) 11.4 (0-10); NEUTROPHILS # (AUTO) 4.3 K/ul (2.0-6.9); NEUTROPHILS % (AUTO) 63.5 % (42.2-75.2); PLATELET COUNT 218 10^3/uL (140-440); RDW COEFFICIENT OF VARIATION 13.3 % (11.6-14.8); RED BLOOD COUNT 4.24 10^6/ul (4.70-6.10); WHITE BLOOD COUNT 6.76 K/ul (4.2-10.2)
[2021-01-25] MEDS ORDERED: CORDARONE IVP ONE (06:48)
[2021-01-25 06:50] LABS: ALANINE AMINOTRANSFERASE 17.3 U/L (0-50); ALBUMIN 4.11 g/dL (3.5-5.0); ALKALINE PHOSPHATASE 93.1 U/L (56-119); ASPARTATE AMINO TRANSFERASE 32.8 U/L (17-59); BILIRUBIN,TOTAL 0.36 mg/dL (0.2-1.3); BLOOD UREA NITROGEN 14.9 mg/dL (9-20); CALCIUM 8.53 mg/dL (8.4-10.2); CARBON DIOXIDE 18.3 mmol/L (22-30.0); CHLORIDE 107.7 mmol/L (98-107); CREATININE 1.25 mg/dL (0.60-1.10); GLUCOSE 245.8 mg/dL (74-106); MAGNESIUM 1.8 mg/dL (1.6-2.3); POTASSIUM 4.04 mmol/L (3.5-5.1); SODIUM 138.1 mmol/L (134.5-145); TOTAL PROTEIN 7.27 g/dL (6.3-8.2)
--- NOTE | 2021-01-25 06:56 | DI ---
EXAM: AP single view of the chest. HISTORY: Dyspnea. History of metastatic lung cancer and throat cancer. FINDINGS: The bones are unremarkable. The cardiac silhouette is enlarged. There are bilateral infil trates. There is right upper lobe and bibasilar consolidation. There is a small right pleural effus ion. There is an ill-defined right hilar opacity measuring approximately 7.3 x 3.8 cm consistent wit h the patient's history of malignancy. There is a left-sided MediPort catheter. Impression: Bilateral infiltrates consistent with infection versus edema. Bilateral consolidation as described, consistent with atelectasis and/or pneumonia. Small right pleural effusion. 7.3 x 3.8 cm right hilar opacity, consistent with the patient's history of malignancy. Cardiomegaly.
[2021-01-25] MEDS ORDERED: SODIUM CHLORIDE IV SCH (07:00)
[2021-01-25] MEDS ORDERED: CORDARONE IV SCH (07:00)
[2021-01-25 07:05] LABS: TROPONIN I 0.028 ng/ml (0.0000-0.120)
[2021-01-25 07:45] LABS: BORDETELLA PARAPERTUSSIS (PCR) NOT DETECTED (NOT DETECT); BORDETELLA PERTUSSIS (PCR) NOT DETECTED (NOT DETECT); CHLAMYDIA PNEUMONIAE (PCR) NOT DETECTED (NOT DETECT); CORONAVIRUS 229E (PCR) NOT DETECTED (NOT DETECT); CORONAVIRUS HKU1 (PCR) NOT DETECTED (NOT DETECT); CORONAVIRUS NL63 (PCR) NOT DETECTED (NOT DETECT); CORONAVIRUS OC43 (PCR) NOT DETECTED (NOT DETECT); HUMAN METAPNEUMOVIRUS (PCR) NOT DETECTED (NOT DETECT); HUMAN RHINOVIRUS/ENTEROV (PCR) NOT DETECTED (NOT DETECT); INFLUENZA B (PCR) NOT DETECTED (NOT DETECT); MYCOPLASMA PNEUMONIAE (PCR) NOT DETECTED (NOT DETECT); PARAINFLUENZA VIRUS 1 (PCR) NOT DETECTED (NOT DETECT); PARAINFLUENZA VIRUS 2 (PCR) NOT DETECTED (NOT DETECT); PARAINFLUENZA VIRUS 3 (PCR) NOT DETECTED (NOT DETECT); PARAINFLUENZA VIRUS 4 (PCR) NOT DETECTED (NOT DETECT); RESPIRATORY SYNCYTIAL V (PCR) NOT DETECTED (NOT DETECT); SARS_COV_2 (PCR) NOT DETECTED (NOT DETECT)
[2021-01-25 08:03] LABS: ABG O2 HGB 88.5 % (95-100); ABG PH 7.41 (7.35-7.45); BEecf -1.1 (-2.0-3.0); COHb 1.1 (0.5-1.5); HCO3 23.5 (21-28); MetHb 0.8 (0-1.5); TCO2 24.6 (19-24); tHb 13.9 g/dl (11.7-17.4)
[2021-01-25] MEDS ORDERED: ZITHROMAX 500 MG in SODIUM CHLORIDE 250 ML IV ONE (08:23)
[2021-01-25] MEDS ORDERED: DECADRON IVP STA (08:25)
[2021-01-25] MEDS ORDERED: SODIUM CHLORIDE 500 ML IV STA (08:29)
[2021-01-25] MEDS: ROCEPHIN 1 GM/50 ML D5W 1 GM/50 ML BAG IV SCH (08:30)
[2021-01-25 08:35] LABS: ADENOVIRUS (PCR) NOT DETECTED (NOT DETECT)
[2021-01-25] MEDS ORDERED: LOVENOX SUBCUT ONE (09:01)
[2021-01-25] MEDS ORDERED: ZOFRAN 4 MG/2 ML IVP PRN (09:09)
[2021-01-25] MEDS ORDERED: ZITHROMAX PO STA (09:09)
[2021-01-25] MEDS ORDERED: TYLENOL PO PRN (09:09)
[2021-01-25 10:46] VITALS: BMI 29.1
--- NOTE | 2021-01-25 10:53 | CT ---
Exam: CTA of the chest, pulmonary embolism protocol. History:Dyspnea, tachycardia, elevated D-dimer. Comparison:Radiograph 01/25/2021. Technique: 3 mm and 5 mmaxial slices were obtained from base of neck through diaphragm after adminis tration of intravenous contrast. Multiplanar reformats, multiplanar MIP images, and 3-D volume rende red reconstructions were obtained and reviewed. Findings:Contrast bolus timing is adequate for evaluation of the pulmonary arterial system. The main pulmonary artery is borderline enlarged. Some degree of motion artifact is noted. No significant p ulmonary embolus is visualized. Left chest wall port is noted. The catheter is not well visualized due to dense contrast in the left sided central venous system. Tracheostomy defect noted. No axillary or supraclavicular lymphadenopathy. The ascending aorta appears borderline in size measuring approximate 40 mm. The heart appears enlarg ed without significant pericardial fluid or thickening. No left-sided hilar lymphadenopathy. Subcar inal granulomatous disease. No well-defined mediastinal lymphadenopathy. Small low density left ple ural effusion. Moderate low density right pleural effusion. Right perihilar mass-like consolidative changes are present with air bronchograms. Findings extend into the right base. Somewhat linear pe ripheral margins are present. Significant motion artifact limits evaluation of the pulmonary structures. Ground-glass consolidativ e changes in the left upper lobe. Dependent atelectatic changes and ground-glass in the left lower l obe. Similar findings at the right lung base. There is mass effect with narrowing of the right uppe r lobe airways proximally. There is mass effect on the right lower lobe airways with probable depend ent mucus or debris noted. Images through the upper abdomen are without significant abnormality. Body wall soft tissues are without significant abnormality. Degenerative changes are present within the spine. Osseous structures are without significant abnormalities. IMPRESSION: No evidence of significant pulmonary embolism. Borderline size of the main pulmonary artery suggesting pulmonary arterial hypertension. Borderline aneurysmal dilatation of the ascending aorta with limited evaluation given noncontrast dusty hnique. Follow-up recommended. Cardiomegaly. Moderate right and small left low density pleural effusions. Right perihilar consolidative changes with extension into the right lower lobe. Findings could repre sent consolidative pneumonia, however, somewhat linear margins may suggest postradiation change. Mal ignancy is also not excluded but not well defined. Correlate clinically and with patient history as well as with any prior outside imaging. A short interval follow-up and/or PET CT may be of value. Scattered ground-glass opacities and ground-glass consolidative changes in the left upper lobe and bi lateral lower lobes suggest superimposed pneumonia. Old granulomatous disease. Previous tracheostomy. Question mucous or debris in the right lower lobe airways. Correlate for possible aspiration. All CT scans are performed using dose optimization techniques as appropriate to the performed exam an d include at least one of the following: Automated exposure control, adjustment of the mA and/or kV according t o size, and the use of iterative reconstruction technique.
[2021-01-25] MEDS: SODIUM CHLORIDE 1,000 ML IV SCH (18:11)
[2021-01-25] MEDS ORDERED: CATAPRES PO ONE (18:14)
[2021-01-25] MEDS ORDERED: COZAAR PO SCH (21:00)
[2021-01-25] MEDS ORDERED: HYDROCHLOROTHIAZIDE PO SCH (21:00)
[2021-01-26 05:17] LABS: BASOPHILS % (AUTO) 0.2 % (0.0-3.0); EOSINOPHILS % (AUTO) 0.2 % (0.0-7.0); HEMATOCRIT 38.3 % (42.0-52.0); HEMOGLOBIN 12.4 g/dl (14.0-18.0); IMMATURE GRANULOCYTE % (AUTO) 0.3 % (0.0-5.0); LYMPHOCYTES # (AUTO) 0.3 K/uL (0.60-3.4); LYMPHOCYTES % (AUTO) 5.4 (10.0-50.0); MEAN CORPUSCULAR HEMOGLOBIN 31.4 pg (27.0-31.0); MEAN CORPUSCULAR HGB CONC 32.4 (31.8-35.4); MONOCYTES # (AUTO) 0.9 K/uL (0.4-2.0); MONOCYTES % (AUTO) 14.4 (0-10); NEUTROPHILS # (AUTO) 4.9 K/ul (2.0-6.9); NEUTROPHILS % (AUTO) 79.5 % (42.2-75.2); PLATELET COUNT 198 10^3/uL (140-440); RDW COEFFICIENT OF VARIATION 13.2 % (11.6-14.8); RED BLOOD COUNT 3.95 10^6/ul (4.70-6.10)
[2021-01-26 05:29] LABS: ALBUMIN 3.4 g/dL (3.5-5.0); BILIRUBIN,TOTAL 0.5 mg/dL (0.2-1.3); CALCIUM 8.5 mg/dL (8.4-10.2); CREATININE 1.1 mg/dL (0.60-1.10); POTASSIUM 3.9 mmol/L (3.5-5.1); TOTAL PROTEIN 6.3 g/dL (6.3-8.2)
[2021-01-26] MEDS: ROCEPHIN 1 GM/50 ML D5W 1 GM/50 ML BAG IV SCH (08:58)
[2021-01-26] MEDS: LOVENOX SUBCUT SCH (08:58)
[2021-01-26] MEDS: ZITHROMAX PO SCH (08:58)
[2021-01-26] MEDS: SODIUM CHLORIDE 1,000 ML IV SCH (20:28)
[2021-01-27 05:17] LABS: BASOPHILS % (AUTO) 0.6 % (0.0-3.0); EOSINOPHILS # (AUTO) 0.1 K/ul (0.0-0.7); EOSINOPHILS % (AUTO) 1.7 % (0.0-7.0); HEMATOCRIT 38.2 % (42.0-52.0); HEMOGLOBIN 12.5 g/dl (14.0-18.0); IMMATURE GRANULOCYTE % (AUTO) 0.4 % (0.0-5.0); LYMPHOCYTES # (AUTO) 0.4 K/uL (0.60-3.4); LYMPHOCYTES % (AUTO) 8.1 (10.0-50.0); MEAN CORPUSCULAR HEMOGLOBIN 31.7 pg (27.0-31.0); MEAN CORPUSCULAR HGB CONC 32.7 (31.8-35.4); MONOCYTES # (AUTO) 0.7 K/uL (0.4-2.0); MONOCYTES % (AUTO) 13.4 (0-10); NEUTROPHILS % (AUTO) 75.8 % (42.2-75.2); PLATELET COUNT 179 10^3/uL (140-440); RDW COEFFICIENT OF VARIATION 13.3 % (11.6-14.8); RED BLOOD COUNT 3.94 10^6/ul (4.70-6.10); WHITE BLOOD COUNT 5.28 K/ul (4.2-10.2)
[2021-01-27] MEDS: SYNTHROID PO SCH (05:33)
[2021-01-27 05:34] LABS: ALANINE AMINOTRANSFERASE 15.9 U/L (0-50); ALBUMIN 3.23 g/dL (3.5-5.0); ALKALINE PHOSPHATASE 67.7 U/L (56-119); ASPARTATE AMINO TRANSFERASE 28.1 U/L (17-59); BILIRUBIN,TOTAL 0.34 mg/dL (0.2-1.3); CALCIUM 8.48 mg/dL (8.4-10.2); CARBON DIOXIDE 26.5 mmol/L (22-30.0); CHLORIDE 106.6 mmol/L (98-107); CREATININE 1.19 mg/dL (0.60-1.10); GLUCOSE 96.1 mg/dL (74-106); POTASSIUM 3.66 mmol/L (3.5-5.1); SODIUM 136.9 mmol/L (134.5-145); TOTAL PROTEIN 6.09 g/dL (6.3-8.2)
--- NOTE | 2021-01-27 06:36 | PCM.PROG ---
Date Seen by Provider: 01/26/21 Time Seen by Provider: 12:00 Subjective: Feeling better. No SOA. No pain. Eating well. Ready for d/c tomorrow. Objective: Vitals: T=97.3 F, P=113, R=20, MY=316/70, CYI5=632 HEENT: [WNL] Neck: [supple. trach functioning well] Lungs: [clear, few rhonchi] CVS: [RRR, no m] Abdomen: [soft] Extremities: [intact] Neurological: intact] Skin: [wnl] Lab/Tests/Diagnostic Imaging: [Refer to chart] (1) Pneumonia: Status: Acute Code(s): J18.9 - Pneumonia, unspecified organism SNOMED Code(s): 056309470 Assessment: COVID negative. Mild pneumonia. On abx. Should be OK without oxygen, check later sat on RA. BP has been WNL without any med. Plan: Continue current tx, anticipate d/c tomorrow.
[2021-01-27] MEDS: ZITHROMAX PO SCH (08:35)
[2021-01-27] MEDS: LOVENOX SUBCUT SCH (08:35)
[2021-01-27] MEDS: ROCEPHIN 1 GM/50 ML D5W 1 GM/50 ML BAG IV SCH (08:35)
[2021-01-27] MEDS ORDERED: CARDIZEM CD PO ONE (18:27)
--- NOTE | 2021-01-27 19:26 | PCM.PROG ---
Date Seen by Provider: 01/27/21 Time Seen by Provider: 08:30 Subjective: Feeling better> Denies Dyspnea at present; Feeling better Objective: Vitals: T=98.5 F, P=148, R=18, XI=135/70, SPO2=94 HEENT: clear Neck: supple Lungs: CTA-AF CVS: HRRR no Murmur Abdomen: Soft non tender Extremities: ROM normal Neurological: AAOX 3 Skin: normal Lab/Tests/Diagnostic Imaging: [] (1) Pneumonia: Status: Acute Code(s): J18.9 - Pneumonia, unspecified organism SNOMED Code(s): 348546665 (2) Hypertension: Status: Acute Code(s): I10 - Essential (primary) hypertension SNOMED Code(s): 30468196 (3) Afib: Status: Acute Code(s): I48.91 - Unspecified atrial fibrillation SNOMED Code(s): 91838556 Plan: Monitor patients vital signs Goal to wean oxygen Home Oxygen if requied/check oxygen requirements
--- NOTE | 2021-01-27 19:45 | PCM.PROG ---
Date Seen by Provider: 01/27/21 Time Seen by Provider: 18:00 Subjective: Called by Rama YING regarding patient having developed persistent tachycardia- afib \Rate 130-140s RN indicated patient w/o other complaints Objective: Vitals: T=98.5 F, P=148, R=18, VS=748/68, SPO2=97 HEENT: [] No Change Neck: [] Lungs:No reported change CVS: HR 130-140 Abdomen: [] Extremities: [] Neurological: [] Skin: nge Lab/Tests/Diagnostic Imaging: No change (1) Pneumonia: Status: Acute Code(s): J18.9 - Pneumonia, unspecified organism SNOMED Code(s): 860123536 (2) Hypertension: Status: Acute Code(s): I10 - Essential (primary) hypertension SNOMED Code(s): 39115744 (3) Afib: Status: Acute Code(s): I48.91 - Unspecified atrial fibrillation SNOMED Code(s): 28217754 (4) Atrial fibrillation with RVR: Status: Acute Code(s): I48.91 - Unspecified atrial fibrillation SNOMED Code(s): 543229182108430 Plan: Initiate Cardizem CD 120 po now then one daily Discusses with Dr Edwards, concurs with intervention
[2021-01-27] MEDS ORDERED: LANOXIN PO ONE (21:37)
[2021-01-28] MEDS ORDERED: CARDIZEM CD PO ONE (03:33)
[2021-01-28] MEDS: SYNTHROID PO SCH (05:33)
[2021-01-28] MEDS: SODIUM CHLORIDE 1,000 ML IV SCH (05:34)
[2021-01-28] MEDS ORDERED: OMNICEF PO SCH (09:00)
[2021-01-28] MEDS ORDERED: CARDIZEM CD PO SCH ×2 (09:00)
[2021-01-28] MEDS: LOVENOX SUBCUT SCH (09:28)
[2021-01-28 14:39] VITALS: BP 128/69; TEMP 98.2
--- NOTE | 2021-01-28 20:18 | PCM.DC ---
Final Diagnosis: Admit dx - Pneumonia, COVID neg Discharge dx - Pneumonia, resolving. New atrial fibrillation with RVR, rate controlled at discharge. Admit 01/25/21 Discharge 01/28/21 (1) Pneumonia: Status: Acute Code(s): J18.9 - Pneumonia, unspecified organism SNOMED Code(s): 237914354 (2) Hypertension: Status: Acute Code(s): I10 - Essential (primary) hypertension SNOMED Code(s): 39508372 (3) Afib: Status: Acute Code(s): I48.91 - Unspecified atrial fibrillation SNOMED Code(s): 33102317 Reason for Hospitalization: HPI - Presented to ER with cough and SOA. Dx with pneumonia and admitted. Unclear heart rhythm at first, later found to be A-fib. Prognosis/Condition at Discharge: Stable and improved. Medications at Discharge: Ambulatory Orders Medication Instructions Recorded levothyroxine 25 mcg tablet 25 mcg PO DAILY 01/25/21 (Synthroid) apixaban 5 mg (74 tabs) tablets in 5 mg PO ONCE #74 ea 01/28/21 a dose pack ([employer] DVT-PE Treat 30D Start) cephalexin 500 mg capsule 500 mg PO TID #15 cap 01/28/21 diltiazem HCl 120 mg 120 mg PO DAILY #30 cap 01/28/21 capsule,extended release 24 hr (Cardizem CD) Lab/Diagnostics: Laboratory Tests 01/25/21 01/25/21 01/25/21 06:28 06:28 06:28 WBC 6.76 RBC 4.24 L Hgb 13.6 L Hct 41.8 L MCV 98.6 H MCH 32.1 H MCHC 32.5 RDW Coeff of [place] 13.3 Plt Count 218 Immature Gran % (Auto) 0.7 Neut % (Auto) 63.5 Lymph % (Auto) 21.6 [place] % (Auto) 11.4 H Eos % (Auto) 2.2 Baso % (Auto) 0.6 Neut # (Auto) 4.3 Lymph # (Auto) 1.5 [place] # (Auto) 0.8 Eos # (Auto) 0.2 Baso # (Auto) 0.0 Immature Gran # (Auto) 0.1 Puncture Site Base Excess O2 Saturation ABG pH ABG pCO2 ABG pO2 ABG HCO3 ABG Total CO2 David Test Hemoglobin Oxyhemoglobin Carboxyhemoglobin Total Hemoglobin FiO2 % Sodium 138.1 Potassium 4.04 Chloride 107.7 H Carbon Dioxide 18.3 L Anion Gap 16.14 BUN 14.9 Creatinine 1.25 H Estimated GFR (MDRD) 56.00 BUN/Creatinine Ratio 11.92 Glucose 245.8 H Lactic Acid Calcium 8.53 Magnesium 1.80 Total Bilirubin 0.36 AST 32.8 ALT 17.3 Alkaline Phosphatase 93.1 Troponin I 0.028 NT-Pro-B Natriuret Pep 6750.000 H Total Protein 7.27 Albumin 4.11 Globulin 3.16 Albumin/Globulin Ratio 1.30 Procalcitonin TSH Free T4 D-Dimer 2631.03 H Adenovirus (PCR) B. pertussis DNA (PCR) B.parapertussis DNA PCR C. pneumoniae DNA (PCR) Coronavirus OC43 (PCR) Coronavirus HKU1 (PCR) Coronavirus 229E (PCR) Coronavirus NL63 (PCR) Human Metapneumovir PCR Influenza Type A (PCR) Influenza B (RT-PCR) M. pneumoniae (PCR) Parainfluenza 1 (PCR) Parainfluenza 2 (PCR) Parainfluenza 3 (PCR) Parainfluenza 4 (PCR) RSV (PCR) Entero/Rhino (PCR) SARS-CoV-2 (PCR) 01/25/21 01/25/21 01/25/21 07:35 07:54 07:54 WBC RBC Hgb Hct MCV MCH MCHC RDW Coeff of [place] Plt Count Immature Gran % (Auto) Neut % (Auto) Lymph % (Auto) [place] % (Auto) Eos % (Auto) Baso % (Auto) Neut # (Auto) Lymph # (Auto) [place] # (Auto) Eos # (Auto) Baso # (Auto) Immature Gran # (Auto) Puncture Site Base Excess O2 Saturation ABG pH ABG pCO2 ABG pO2 ABG HCO3 ABG Total CO2 David Test Hemoglobin Oxyhemoglobin Carboxyhemoglobin Total Hemoglobin FiO2 % Sodium Potassium Chloride Carbon Dioxide Anion Gap BUN Creatinine Estimated GFR (MDRD) BUN/Creatinine Ratio Glucose Lactic Acid 2.18 H Calcium Magnesium Total Bilirubin AST ALT Alkaline Phosphatase Troponin I NT-Pro-B Natriuret Pep Total Protein Albumin Globulin Albumin/Globulin Ratio Procalcitonin < 0.05 TSH Free T4 D-Dimer Adenovirus (PCR) Not detected B. pertussis DNA (PCR) Not detected B.parapertussis DNA PCR Not detected C. pneumoniae DNA (PCR) Not detected Coronavirus OC43 (PCR) Not detected Coronavirus HKU1 (PCR) Not detected Coronavirus 229E (PCR) Not detected Coronavirus NL63 (PCR) Not detected Human Metapneumovir PCR Not detected Influenza Type A (PCR) Not detected Influenza B (RT-PCR) Not detected M. pneumoniae (PCR) Not detected Parainfluenza 1 (PCR) Not detected Parainfluenza 2 (PCR) Not detected Parainfluenza 3 (PCR) Not detected Parainfluenza 4 (PCR) Not detected RSV (PCR) Not detected Entero/Rhino (PCR) Not detected SARS-CoV-2 (PCR) Not detected 01/25/21 01/26/21 01/26/21 07:59 04:30 04:30 WBC 6.10 RBC 3.95 L Hgb 12.4 L Hct 38.3 L MCV 97.0 H MCH 31.4 H MCHC 32.4 RDW Coeff of [place] 13.2 Plt Count 198 Immature Gran % (Auto) 0.3 Neut % (Auto) 79.5 H Lymph % (Auto) 5.[address] [place] % (Auto) 14.4 H Eos % (Auto) 0.2 Baso % (Auto) 0.2 Neut # (Auto) 4.9 Lymph # (Auto) 0.[address] [place] # (Auto) 0.9 Eos # (Auto) 0.0 Baso # (Auto) 0.0 Immature Gran # (Auto) 0.0 Puncture Site Rrad Base Excess -1.1 O2 Saturation 89.0 L ABG pH 7.41 ABG pCO2 37.0 ABG pO2 56.0 L* ABG HCO3 23.5 ABG Total CO2 24.6 H David Test Pos Hemoglobin 0.8 Oxyhemoglobin 88.5 L Carboxyhemoglobin 1.1 Total Hemoglobin 13.9 FiO2 % 21.0 Sodium 137.0 Potassium 3.90 Chloride 105.0 Carbon Dioxide 29.0 D Anion Gap 6.90 BUN 18.0 Creatinine 1.10 Estimated GFR (MDRD) 65.00 BUN/Creatinine Ratio 16.36 Glucose 109.0 H D Lactic Acid Calcium 8.50 Magnesium Total Bilirubin 0.50 AST 24.0 ALT 14.0 Alkaline Phosphatase 71.0 Troponin I NT-Pro-B Natriuret Pep Total Protein 6.30 Albumin 3.40 L Globulin 2.90 Albumin/Globulin Ratio 1.17 Procalcitonin TSH Free T4 D-Dimer Adenovirus (PCR) B. pertussis DNA (PCR) B.parapertussis DNA PCR C. pneumoniae DNA (PCR) Coronavirus OC43 (PCR) Coronavirus HKU1 (PCR) Coronavirus 229E (PCR) Coronavirus NL63 (PCR) Human Metapneumovir PCR Influenza Type A (PCR) Influenza B (RT-PCR) M. pneumoniae (PCR) Parainfluenza 1 (PCR) Parainfluenza 2 (PCR) Parainfluenza 3 (PCR) Parainfluenza 4 (PCR) RSV (PCR) Entero/Rhino (PCR) SARS-CoV-2 (PCR) 01/27/21 01/27/21 01/27/21 04:51 04:51 04:51 WBC 5.28 RBC 3.94 L Hgb 12.5 L Hct 38.2 L MCV 97.0 H MCH 31.7 H MCHC 32.7 RDW Coeff of [place] 13.3 Plt Count 179 Immature Gran % (Auto) 0.4 Neut % (Auto) 75.8 H Lymph % (Auto) 8.[address] [place] % (Auto) 13.4 H Eos % (Auto) 1.7 Baso % (Auto) 0.6 Neut # (Auto) 4.0 Lymph # (Auto) 0.[address] [place] # (Auto) 0.7 Eos # (Auto) 0.1 Baso # (Auto) 0.0 Immature Gran # (Auto) 0.0 Puncture Site Base Excess O2 Saturation ABG pH ABG pCO2 ABG pO2 ABG HCO3 ABG Total CO2 David Test Hemoglobin Oxyhemoglobin Carboxyhemoglobin Total Hemoglobin FiO2 % Sodium 136.9 Potassium 3.66 Chloride 106.6 Carbon Dioxide 26.5 Anion Gap 7.46 BUN 25.0 H Creatinine 1.19 H Estimated GFR (MDRD) 60.00 BUN/Creatinine Ratio 21.00 Glucose 96.1 Lactic Acid Calcium 8.48 Magnesium Total Bilirubin 0.34 AST 28.1 ALT 15.9 Alkaline Phosphatase 67.7 Troponin I NT-Pro-B Natriuret Pep Total Protein 6.09 L Albumin 3.23 L Globulin 2.86 Albumin/Globulin Ratio 1.12 Procalcitonin TSH Free T4 0.94 D-Dimer Adenovirus (PCR) B. pertussis DNA (PCR) B.parapertussis DNA PCR C. pneumoniae DNA (PCR) Coronavirus OC43 (PCR) Coronavirus HKU1 (PCR) Coronavirus 229E (PCR) Coronavirus NL63 (PCR) Human Metapneumovir PCR Influenza Type A (PCR) Influenza B (RT-PCR) M. pneumoniae (PCR) Parainfluenza 1 (PCR) Parainfluenza 2 (PCR) Parainfluenza 3 (PCR) Parainfluenza 4 (PCR) RSV (PCR) Entero/Rhino (PCR) SARS-CoV-2 (PCR) 01/27/21 04:51 WBC RBC Hgb Hct MCV MCH MCHC RDW Coeff of [place] Plt Count Immature Gran % (Auto) Neut % (Auto) Lymph % (Auto) [place] % (Auto) Eos % (Auto) Baso % (Auto) Neut # (Auto) Lymph # (Auto) [place] # (Auto) Eos # (Auto) Baso # (Auto) Immature Gran # (Auto) Puncture Site Base Excess O2 Saturation ABG pH ABG pCO2 ABG pO2 ABG HCO3 ABG Total CO2 David Test Hemoglobin Oxyhemoglobin Carboxyhemoglobin Total Hemoglobin FiO2 % Sodium Potassium Chloride Carbon Dioxide Anion Gap BUN Creatinine Estimated GFR (MDRD) BUN/Creatinine Ratio Glucose Lactic Acid Calcium Magnesium Total Bilirubin AST ALT Alkaline Phosphatase Troponin I NT-Pro-B Natriuret Pep Total Protein Albumin Globulin Albumin/Globulin Ratio Procalcitonin TSH 15.400 H Free T4 D-Dimer Adenovirus (PCR) B. pertussis DNA (PCR) B.parapertussis DNA PCR C. pneumoniae DNA (PCR) Coronavirus OC43 (PCR) Coronavirus HKU1 (PCR) Coronavirus 229E (PCR) Coronavirus NL63 (PCR) Human Metapneumovir PCR Influenza Type A (PCR) Influenza B (RT-PCR) M. pneumoniae (PCR) Parainfluenza 1 (PCR) Parainfluenza 2 (PCR) Parainfluenza 3 (PCR) Parainfluenza 4 (PCR) RSV (PCR) Entero/Rhino (PCR) SARS-CoV-2 (PCR) CT chest: IMPRESSION: No evidence of significant pulmonary embolism. Borderline size of the main pulmonary artery suggesting pulmonary arterial hypertension. Borderline aneurysmal dilatation of the ascending aorta with limited evaluation given noncontrast technique. Follow-up recommended. Cardiomegaly. Moderate right and small left low density pleural effusions. Right perihilar consolidative changes with extension into the right lower lobe. Findings could represent consolidative pneumonia, however, somewhat linear margins may suggest postradiation change. Malignancy is also not excluded but not well defined. Correlate clinically and with patient history as well as with any prior outside imaging. A short interval follow-up and/or PET CT may be of value. Scattered ground-glass opacities and ground-glass consolidative changes in the left upper lobe and bilateral lower lobes suggest superimposed pneumonia. Old granulomatous disease. Previous tracheostomy. Question mucous or debris in the right lower lobe airways. Correlate for possible aspiration. All CT scans are performed using dose optimization techniques as appropriate to the performed exam and include at least one of the following: Automated exposure control, adjustment of the mA and/or kV according to size, and the use of iterative reconstruction technique. Education Provided to Patient and Family: Pneumonia. A-fib. Follow-ups: DR. Iglesias next week. Discharge Disposition: Home Hospital Course: Admitted with 1. Pneumonia - tx with abx, needed some supplemental oxygen at first, RA sat normal on d/c. Rx keflex for home. 2. Hypertension - mild HTN while in hospital, controlled with med., Rx for home 3. A-fib, new onset. BP and HR controlled at d/c with cardizem. Will intially try cardizem CD 120 mg daily, may have to increase. Patient has no Medicare Part D and pays diaz for med, Dr. Iglesias will supply samples of eliquis for now. Plan: Home with new med. Monitor BP and HR and call Dr. Iglesias if any questions on cardizem dose adjustment.
== END 2021-01-28 14:52 | disposition home or self-care (01) | DRG 195 ==
LOC: ED 06:03 → MEDSURG A 09:20
PROVIDERS: ADMIT Emergency Medicine; ATTEND Emergency Medicine
DX: I48.91 Unspecified atrial fibrillation; I10 Essential (primary) hypertension; J18.9 Pneumonia, unspecified organism; Z20.822 Contact with and (suspected) exposure to COVID-19